=== PATIENT | male | born 1990 | race Caucasian/White ===

== ENCOUNTER 2016-07-15 15:49 | Emergency (ER) | payer OTHER ==
[~2016-07-15] VITALS: Ht 188 cm; Wt 73.5 kg
[~2016-07-15 15:49] MED LIST: CYCL1TAB29 PO; IBUP800T23 PO; PRED50 PO
[2016-07-15 16:19] VITALS: BP 118/78; PULSE 83; RESP 20; TEMP 98.8; O2SAT 98
--- NOTE | 2016-07-15 16:59 | PD ---
HPI Chief Complaint: ENT Complaint Time Seen by Provider: 16:59 Travel History International Travel<30 days: No Contact w/Intl Traveler<30days: No Traveled to known affect area: No History of Present Illness HPI 25-year-old male presents to emergency Department with complaint of sore throat 2 days. Reports MAXIMUM TEMPERATURE of 101.0. Others are sick at work. Denies lump in throat, unusual drooling, difficulty swallowing. Reports painful swallowing. Denies cough. Reports headache that has subsided after taking Tylenol for his fever, which is also subsided. Has taken NyQuil with minimal relief also. Reports burning sensation in his throat. Denies abdominal pain, nausea, vomiting. Denies difficulty breathing, shortness of breath. Allergic to iodine. History of SVT with ablation. Does not have primary care provider in this area. No other modifying factors or associated signs and symptoms. PFSH Past Medical History Heart Rhythm Problems: Yes (HX SVT) Cardiovascular Problems: Yes (HX: SVT WITH ABLATION) Diminished Hearing: No Immunizations Current: No PNEUMOCCOCAL Vaccine (Year): 3 Past Surgical History Cardiac Surgery: Yes (heart ablation for svt) Other Surgery: Yes (WISDOM TEETH) Social History Alcohol Use: Yes (social beer) Tobacco Use: Yes (1.5 ppd) Substance Use: No Allergies-Medications (Allergen,Severity, Reaction): Coded Allergies: Iodine (Verified Allergy, Severe, 07/15/16) Reported Meds & Prescriptions Reported Meds & Active Scripts Active No Active Prescriptions or Reported Medications Review of Systems Except as stated in HPI: all other systems reviewed are Neg Physical Exam Narrative GENERAL: Well-nourished, well-developed male patient, in no acute distress SKIN: Warm and dry. No rash. HEAD: Atraumatic. Normocephalic. EYES: Pupils equal and round at 3 mm with brisk reaction. No scleral icterus. No injection or drainage. PERRLA. ENT: Mucosa pink and dry. Pharynx with erythema; without exudate or edema. No Uvular edema. No uvular, palatal, or tonsillar deviation. Airway patent. Voice is hoarse. EARS: Bilateral pinnae and external canals appear within normal limits. Bilateral tympanic membranes without erythema, dullness or perforation.. NECK: Trachea midline. Anterior cervical lymphadenopathy and tenderness. CARDIOVASCULAR: Regular rate and rhythm. No murmur appreciated. RESPIRATORY: No accessory muscle use. Clear to auscultation. Breath sounds equal bilaterally. GASTROINTESTINAL: Abdomen soft, non-tender, nondistended. Hepatic and splenic margins not palpable. Bowel sounds are active 4 quadrants. MUSCULOSKELETAL: No obvious deformities. No clubbing. No cyanosis. No edema. NEUROLOGICAL: Awake and alert. Oriented 3. No obvious cranial nerve deficits. Motor grossly within normal limits. Normal speech. Moves all extremities. PSYCHIATRIC: Appropriate mood and affect; insight and judgment normal. Data Data Last Documented VS Vital Signs Date Time Temp Pulse Resp B/P Pulse Ox O2 Delivery O2 Flow Rate FiO2 07/15/16 16:19 98.8 83 20 118/78 98 Orders Group A Rapid Strep Screen (07/15/16 16:59) MDM Medical Decision Making Medical Screen Exam Complete: Yes Emergency Medical Condition: Yes Medical Record Reviewed: Yes Differential Diagnosis Strep pharyngitis, viral pharyngitis, less likely peritonsillar abscess Narrative Course 25-year-old male with sore throat 2 days. Denies unusual joint, lumbar throat , difficulty swallowing. Oropharynx without edema or exudate; with erythema. Afebrile in the ear. Reports MAXIMUM TEMPERATURE 101.0. Denies cough. Centor Score: 3; Score 3=risk of GABHS 28-35%=perform rapid strep swab. Rapid strep ordered. Patient took Tylenol prior to arrival to the ER. 1742: Strep positive. Amoxicillin, Magic mouthwash, ibuprofen prescribed for home. Patient is medically cleared and stable for discharge. Discussed reasons to return to the emergency department. Instructed patient to follow up with primary care provider. Patient agrees with treatment plan. The patients vital signs are stable and the patient is stable for outpatient follow-up and treatment. Patient discharged home, stable and in no acute distress. Diagnosis Primary Impression: Strep throat Referrals: Primary Care Physician Patient Instructions: General Instructions, Strep Throat (ED) Additional Instructions: Take Antibiotics as prescribed and complete full course of antibiotics Get plenty of sleep/rest Rest your voice Drink plenty of fluids to prevent dehydration Use warm saltwater gargles to soothe throat pain Use an air humidifier/turn off ceiling fans Use throat lozenges as needed for sore throat Use ibuprofen or acetaminophen as needed to relieve pain and fever Follow-up with your primary care provider within 2-4 days Return immediately to the emergency department Med/Other Pt SpecificInfo: Prescription(s) given Scripts Ibuprofen 800 Mg Tep353 Mg PO Q6HR PRN (PAIN) #30 TAB Ref 0 Prov:Lyn Mabry 07/15/16 Lwnfyayl-Apnbdliomxxnjnb-Emgcpumbe Liq (Magic Mouthwash Adult Liq)120 Ml Susp5 Ml SWISH-SPIT Q3HR PRN (SORE THROAT) #120 ML Ref 0 Each 5 mL contains: Nystatin 200,000 units, Diphenhydramine 4.25 mg, Viscous Lidocaine 10 mg, Cunningham syrup 0.8 mL Prov:Lyn Mabry 07/15/16 Amoxicillin 500 Mg Yzx780 Mg PO BID 10 Days Ref 0 Prov:Lyn Mabry 07/15/16 Disposition: 01 DISCHARGE HOME Condition: Stable Lyn Mabry Jul 15, 2016 16:59
[2016-07-15] MEDS ORDERED: IBUP800T23 PO (17:41)
[2016-07-15] MEDS ORDERED: MAGICADU2 SWISH-SPIT (17:41)
[2016-07-15] MEDS ORDERED: AMOX500T PO (17:41)
== END 2016-07-15 17:54 | disposition home or self-care (01) ==
LOC: PHEFT 15:49
DX: J02.0 Streptococcal pharyngitis (principal); B95.0 Streptococcus, group A, as the cause of diseases classified elsewhere; F17.210 Nicotine dependence, cigarettes, uncomplicated
CPT/HCPCS: 87880; 99283

== ENCOUNTER 2017-04-23 02:54 | Emergency (ER) | payer SELFPAY ==
[~2017-04-23] VITALS: Ht 190.5 cm; Wt 82.0 kg
[~2017-04-23 02:54] MED LIST changes: +AMOX500T PO; -CYCL1TAB29 PO; +MAGICADU2 SWISH-SPIT; -PRED50 PO
[2017-04-23 02:55] VITALS: BP 135/82; PULSE 112; RESP 15; TEMP 97.9; O2SAT 98
[2017-04-23] MEDS ORDERED: LIDOCAINE HCL 2% 20 ML VIAL ONE (03:11)
[2017-04-23] MEDS ORDERED: LIDOCAINE 2%/EPINEPHrine 1:100,000 20ML MDV NERV BLOCK ONE (03:15)
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
== END 2017-04-23 03:54 | disposition home or self-care (01) ==
LOC: NEPK 02:54
DX: S01.511A Laceration without foreign body of lip, initial encounter (principal); Y00.XXXA Assault by blunt object, initial encounter; Y92.89 Other specified places as the place of occurrence of the external cause
CPT/HCPCS: 12013

== ENCOUNTER 2017-04-23 05:17 | Emergency (ER) | payer SELFPAY ==
[~2017-04-23] VITALS: Ht 188 cm; Wt 77.0 kg
[2017-04-23 05:25] VITALS: BP 98/64; PULSE 96; RESP 14; TEMP 98.6; O2SAT 95
[2017-04-23] MEDS ORDERED: SODIUM CHLOR 0.9% 1000 ML INJ 1,000 ML IV ONE (05:55)
[2017-04-23] MEDS ORDERED: SODIUM CHLORIDE 0.9% FLUSH 10 ML FLUSH IVF PRN (06:00)
[2017-04-23] MEDS ORDERED: THIAMINE INJ 100 MG in SODIUM CHLORIDE 0.9% INJ 100 ML IV ONE (06:00)
[2017-04-23 06:02] VITALS: BP 109/76; PULSE 92; RESP 16; O2SAT 99
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
[2017-04-23 06:25] LABS: BASOPHIL % 0.4 % (0.0-2.0); EOSINOPHIL # 0.1 TH/MM3 (0-0.4); EOSINOPHIL % 0.6 % (0.0-4.0); HEMO FLAGS DIFF FINAL; LYMPHOCYTE # 2.5 TH/MM3 (1.0-4.8); MEAN CELL VOLUME 88.5 FL (80.0-100.0); MEAN CORPUSCULAR HEMOGLOBIN 29.5 PG (27.0-34.0); MEAN CORPUSCULAR HGB CONC 33.4 % (32.0-36.0); MONO % 3.4 % (0.0-8.0); NEUT % 67.6 % (16.0-70.0); PLATELET COUNT 278 TH/MM3 (150-450); RED BLOOD COUNT 5.31 MIL/MM3 (4.50-5.90); RED CELL DISTRIBUTION WIDTH 12.7 % (11.6-17.2); WHITE BLOOD COUNT 8.9 TH/MM3 (4.0-11.0)
[2017-04-23 06:35] LABS: CHLORIDE 104 MEQ/L (98-107); SODIUM (NA) 138 MEQ/L (136-145)
[2017-04-23 06:38] LABS: ANION GAP 10 MEQ/L (5-15); BLOOD UREA NITROGEN 10 MG/DL (7-18)
[2017-04-23 06:40] LABS: ALCOHOL 73 MG/DL (0-5)
[2017-04-23 06:41] LABS: ALT (GPT) 23 U/L (12-78); AST (GOT) 11 U/L (15-37); GLOMERULAR FILTRATION RATE 95 ML/MIN (>89)
[2017-04-23 06:43] LABS: TOTAL BILIRUBIN ADULT 0.4 MG/DL (0.2-1.0)
[2017-04-23 06:44] LABS: ALKALINE PHOSPHATASE 70 U/L (45-117)
--- NOTE | 2017-04-23 06:48 | RADRPT ---
EXAM DATE/TIME: 04/23/2017 06:27 [facility] COMPARISON: No previous studies available for comparison. INDICATIONS : Altered mental status. RADIATION DOSE: 60.21 CTDIvol (mGy) ; Patient motion MEDICAL HISTORY : Seizures. Cardiovascular disease SURGICAL HISTORY : None. ENCOUNTER: Initial ACUITY: 1 day PAIN SCALE: 0/10 LOCATION: cranial TECHNIQUE: Multiple contiguous axial images were obtained of the head. Using automated exposure control and adj ustment of the mA and/or kV according to patient size, radiation dose was kept as low as reasonably a chievable to obtain optimal diagnostic quality images. DICOM format image data is available electro nically for review and comparison. FINDINGS: CEREBRUM: The ventricles are normal for age. No evidence of midline shift, mass lesion, hemorrhage or acute in farction. No extra-axial fluid collections are seen. POSTERIOR FOSSA: The cerebellum and brainstem are intact. The 4th ventricle is midline. The cerebellopontine angle i s unremarkable. EXTRACRANIAL: The visualized portion of the orbits is intact. SKULL: The calvaria is intact. No evidence of skull fracture. CONCLUSION: Normal examination. Ted Little MD on April 23, 2017 at 6:46 Board Certified Radiologist. This report was verified electronically.
[2017-04-23 06:50] VITALS: BP 91/54; PULSE 78; RESP 16; O2SAT 98
[2017-04-23 07:16] LABS: GLUCOSE,URINE NEG (NEG); KETONE, URINE TRACE mg/dL (NEG); NITRITE,URINE NEG (NEG); PH, URINE 5.5 (5.0-8.5)
[2017-04-23 07:20] LABS: BLOOD, URINE TRACE (NEG)
[2017-04-23 07:21] LABS: METHOD OF COLLECTION CLEAN CATCH; URINE COLOR YELLOW (YELLW/STRAW)
[2017-04-23 07:22] LABS: COMMENT (UR) CULT NOT INDICATED; CULTURE IF INDICATED CULT NOT INDICATED; MUCUS URINE FEW /lpf (OCC); RBC, URINE 0-3 /hpf (0-3); SQUAMOUS EPITHELIAL CELL URINE 0-5 /hpf (0-5)
== END 2017-04-23 07:12 | disposition home or self-care (01) ==
LOC: PHED 05:17
DX: G40.909 Epilepsy, unspecified, not intractable, without status epilepticus (principal); F10.10 Alcohol abuse, uncomplicated
CPT/HCPCS: 70450; 80053; 80307; 81001; 85025; 96374; 99285; J3411; J7030

== ENCOUNTER 2017-09-28 12:07 | Emergency (ER) | payer SELFPAY ==
[~2017-09-28] VITALS: Ht 190.5 cm; Wt 76.8 kg
[2017-09-28 12:23] VITALS: BP 132/65; PULSE 68; RESP 16; TEMP 98.2; O2SAT 99
[2017-09-28] MEDS ORDERED: CLIN300C5 PO (13:38)
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
[2017-09-28] MEDS ORDERED: ERYTHROMYCIN 0.5% OPTH OINT 3.5 GM TUBO LEFT EYE ONE (13:45)
== END 2017-09-28 14:18 | disposition home or self-care (01) ==
LOC: PHEFT 12:07
DX: S05.02XA Injury of conjunctiva and corneal abrasion without foreign body, left eye, initial encounter (principal); L03.213 Periorbital cellulitis; H53.8 Other visual disturbances; Z72.0 Tobacco use
CPT/HCPCS: 99283